=== PATIENT | male | born 1960 | race Caucasian/White ===

== ENCOUNTER 2018-02-08 10:50 | Emergency (ER) | payer BC ==
[2018-02-08] MEDS ORDERED: Alteplase (CATHFLO)* 2 MG VIAL IV ONE (11:22)
--- NOTE | 2018-02-08 13:06 | ED ---
Complex/Multi-Sys Presentation - HPI Summary HPI Summary: 57-year-old male who is on vacation at this time presents to the ED with a complaint to his PICC line. He states his PICC line is for a recent sepsis secondary to cholangitis. PICC line has been in for 2 weeks and will be taken out in 5 days, however he is here today requiring heparin flush. He states he put the antibiotic and against gravity and it is getting more and more difficult to flush. He does not have heparin flushes with him while on vacation. He states while the lumen remains somewhat patent, it is becoming more difficult and he is afraid that he will not be able to get his antibiotics in. He has been using heparin flushes until he left for vacation. - History Of Current Complaint Chief Complaint: EDGeneral Time Seen by Provider: 02/08/18 11:16 Hx Obtained From: Patient Onset/Duration: Gradual Onset Timing: Constant Severity Currently: Mild Severity Initially: Mild Location: Negative - Allergies/Home Medications Allergies/Adverse Reactions: Allergies Allergy/AdvReac Type Severity Reaction Status Date / Time No Known Allergies Allergy Verified 02/08/18 10:55 Home Medications: Home Medications ERTApenem(*) [Invanz(*)] 1 gm IV Q24H 02/08/18 [History Confirmed 02/08/18] predniSONE [Prednisone 20 MG TAB] 30 mg PO DAILY 02/08/18 [History Confirmed ] PMH/Surg Hx/FS Hx/Imm Hx Previously Healthy: Yes - Immunization History Hx Pertussis Vaccination: No Immunizations Up to Date: Unable to Obtain/Confirm Infectious Disease History: No Infectious Disease History: Denies: Traveled Outside the [place] in Last 30 Days - Social History Occupation: Employed Full-time Lives: With Family Alcohol Use: None Hx Substance Use: No Substance Use Type: Reports: None Hx Tobacco Use: No Smoking Status (MU): Never Smoked Tobacco Review of Systems Constitutional: Negative Negative: Fever, Chills, Fatigue, Skin Diaphoresis Negative: Palpitations, Chest Pain Negative: Shortness Of Breath Genitourinary: Negative Positive: no symptoms reported, see HPI Negative: Arthralgia, Myalgia Negative: Rash, Bruising Psychological: Normal All Other Systems Reviewed And Are Negative: Yes Physical Exam Triage Information Reviewed: Yes Vital Signs On Initial Exam: Initial Vitals Temp Pulse Resp BP Pulse Ox 98.5 F 96 16 133/81 97 02/08/18 10:52 02/08/18 10:52 02/08/18 10:52 02/08/18 10:52 02/08/18 10:52 Vital Signs Reviewed: Yes Appearance: Positive: Well-Appearing, Well-Nourished Skin: Positive: Warm, Skin Color Reflects Adequate Perfusion Head/Face: Positive: Normal Head/Face Inspection Eyes: Positive: EOMI, Conjunctiva Clear Neck: Positive: Supple, No Lymphadenopathy Respiratory/Lung Sounds: Positive: Breath Sounds Present Cardiovascular: Positive: RRR, Pulses are Symmetrical in both Upper and Lower Extremities Musculoskeletal: Positive: Normal, Strength/ROM Intact Neurological: Positive: Speech Normal Psychiatric: Positive: Normal, Affect/Mood Appropriate Diagnostics - Vital Signs Vital Signs Temp Pulse Resp BP Pulse Ox 02/08/18 10:52 98.5 F 96 16 133/81 97 - Laboratory Lab Statement: Any lab studies that have been ordered have been reviewed, and results considered in the medical decision making process. Complex Multi-Symp Course/Dx Course Of Treatment: During the course of treatment, the patients PICC line was flushed with normal saline with good effect. Patient states however against gravity the area is very difficult to flush. Flushed the PICC line with heparin. He will be given 3 doses heparin to go. He is okay with this plan. - Diagnoses Provider Diagnoses: Occluded PICC line Discharge - Sign-Out/Discharge Documenting (check all that apply): Discharge/Admit/Transfer - Discharge Plan Condition: Stable Disposition: HOME Referrals: No Primary Care Phys,NOPCP [Primary Care Provider] - Additional Instructions: Please use heparin flush every 24 hours to keep lumen patent - Billing Disposition and Condition Condition: STABLE Disposition: Home
[2018-02-08 13:29] VITALS: BP 127/90
== END 2018-02-08 13:28 | disposition home or self-care (01) ==
LOC: ED 10:50
DX: T82.594A Other mechanical complication of infusion catheter, initial encounter (principal); Z86.19 Personal history of other infectious and parasitic diseases
CPT/HCPCS: 96374; 99282; J2997